=== PATIENT | male | born 1955 | race Caucasian/White ===

== ENCOUNTER → 2016-07-19 | Outpatient (REF) | payer OTHER | LOC: M SFHCCLAY 11:09 | PROVIDERS: ATTEND Family Medicine | DX: Z85.46 Personal history of malignant neoplasm of prostate (principal); Z08 Encounter for follow-up examination after completed treatment for malignant neoplasm ==

== ENCOUNTER → 2016-07-19 | Outpatient (CLI) | payer OTHER ==
--- NOTE | 2016-07-19 12:43 | REP ---
Clinical: Bilateral flank pain. Technique: Supine views of the abdomen and pelvis. Findings: Bowel gas pattern is nonspecific. No obvious urinary tract calcifications are appreciated. Evidence of prior prostatectomy. Skeletal structures demonstrate age-related degenerative changes. Impression: Limited evaluation without evidence for nephroureterolithiasis.
== END ==
LOC: M CLY 11:41
PROVIDERS: ATTEND Family Medicine
DX: M54.5 Low back pain (principal); R31.29 Other microscopic hematuria

== ENCOUNTER → 2016-08-25 | Outpatient (CLI) | payer OTHER ==
--- NOTE | 2016-08-25 09:57 | REP ---
BILATERAL RENAL ULTRASOUND: 08/25/2016. Clinical history: Left flank pain. Findings: No prior study. The right kidney is 12.1 x 6.1 x 5.3 cm. Left kidney 12.1 x 6.5 x 5 cm. Cortical echogenicity and thickness is normal on both sides. There is no hydronephrosis or hydroureter. Interpolar region of the left kidney shows a hypoechoic area 1.2 x 1 x 0.8 cm which may be calyceal diverticulum or cyst. No cyst or solid mass otherwise in either kidney. No stone or perinephric fluid. The bladder is only partially filled and cannot be evaluated. Impression: 1. There is no hydronephrosis, stone or perinephric fluid. 2. No definite solid mass. There is a small interpolar cyst versus calyceal diverticulum left kidney. 1.2 x 1 cm. 3. Bladder under filled and cannot be evaluated. Signed by Gene Smith MD 08/25/2016 05:49 P
== END ==
LOC: M RAD 09:07
PROVIDERS: ATTEND Family Medicine
DX: R10.9 Unspecified abdominal pain (principal)

== ENCOUNTER → 2017-05-31 | Outpatient (CLI) | payer OTHER | LOC: M RAD 15:40 | DX: R10.9 Unspecified abdominal pain (principal); K57.30 Diverticulosis of large intestine without perforation or abscess without bleeding | CPT/HCPCS: 74176 ==

== ENCOUNTER → 2017-08-17 | Outpatient (REF) | payer OTHER ==
[2017-08-18 12:17] LABS: HEMATOCRIT 51.6 % (42.0-52.0); HEMOGLOBIN 17.2 g/dl (14.0-18.0); MEAN CORPUSCULAR HEMOGLOBIN 27.5 pg (27.0-33.0); MEAN CORPUSCULAR HGB CONC 33.3 g/dl (32.0-36.5); MEAN CORPUSCULAR VOLUME 82.4 fl (80.0-96.0); PLATELET COUNT, AUTOMATED 308 10^3/uL (150-450); RED BLOOD COUNT 6.26 10^6/uL (4.30-6.10); RED CELL DISTRIBUTION WIDTH 12.7 % (11.5-14.5)
[2017-08-18 12:51] LABS: THYROID STIMULATING HORMONE 0.354 uIU/ML (0.358-3.740)
[2017-08-18 13:02] LABS: ALBUMIN 4.5 GM/DL (3.2-5.2); ALBUMIN/GLOBULIN RATIO 1.45 (1.00-1.93); ALKALINE PHOSPHATASE 68 U/L (45-117); ALT/SGPT 48 U/L (12-78); ANION GAP 4 MEQ/L (8-16); AST/SGOT 26 U/L (7-37); BILIRUBIN,TOTAL 0.5 MG/DL (0.2-1.0); BLOOD UREA NITROGEN 19 MG/DL (7-18); CALCIUM LEVEL 9.7 MG/DL (8.8-10.2); CARBON DIOXIDE LEVEL 33 MEQ/L (21-32); CHLORIDE LEVEL 104 MEQ/L (98-107); CREATININE FOR GFR 1.21 MG/DL (0.70-1.30); GLOMERULAR FILTRATION RATE > 60.0 (>49); GLUCOSE, FASTING 93 MG/DL (70-100); POTASSIUM SERUM 3.9 MEQ/L (3.5-5.1); SODIUM LEVEL 141 MEQ/L (136-145); TOTAL PROTEIN 7.6 GM/DL (6.4-8.2)
[2017-08-19 15:14] LABS: EBV VIRAL CAPSID AG IgM <36.0 U/mL (0.0-35.9)
[2017-08-20 00:06] LABS: Lyme Disease IgG/IgM Antibodie <0.91 ISR (0.00-0.90); Lyme Disease IgM Ab Quantitati <0.80 index (0.00-0.79)
== END ==
LOC: M SFHCCLAY 15:19
DX: R53.83 Other fatigue (principal); R53.81 Other malaise; R11.0 Nausea; R42 Dizziness and giddiness; R68.83 Chills (without fever)
CPT/HCPCS: 84443

== ENCOUNTER → 2020-07-02 | Outpatient (CLI) | payer OTHER ==
--- NOTE | 2020-07-02 10:30 | REP ---
INDICATION: HYPERTENTION/IMPINGEMENT SYNDROME OF RIGHT SHOULDER. COMPARISON: No comparison study. TECHNIQUE: Two views.. FINDINGS: The lungs are well inflated and free of infiltrate. The pleural angles are sharp. The heart size is normal. Pulmonary vasculature is not increased. No significant bony abnormality is seen. There are minimal discogenic spurs in the midthoracic spine. IMPRESSION: Negative chest x-ray. <Electronically signed by Abdon Veras > 07/02/20 1021
--- NOTE | 2020-07-02 10:33 | REP ---
INDICATION: HYPERTENTION/IMPINGEMENT SYNDROME OF RIGHT SHOULDER. COMPARISON: None. TECHNIQUE: Three views of the right shoulder are provided. FINDINGS: The right glenohumeral and acromioclavicular joints are normally aligned. There is mild inferior osteoarthritic spurring at the AC joint. Mild inferior glenohumeral spurring is seen at the inferior aspect of the glenoid. There is periarticular soft tissue calcification with a large calcific deposit superior and lateral to the humeral head consistent with calcific tendinitis or bursitis. No erosive changes seen. No fracture is seen. The visualized right rib cage is unremarkable. IMPRESSION: Large soft tissue calcific deposit in the periarticular soft tissues. Mild glenohumeral and acromioclavicular joint osteoarthritis. <Electronically signed by Abdon Veras > 07/02/20 [id number]
== END ==
LOC: M CLY 10:03
PROVIDERS: ATTEND Family Medicine
DX: I10 Essential (primary) hypertension (principal); M75.41 Impingement syndrome of right shoulder; M19.011 Primary osteoarthritis, right shoulder

== ENCOUNTER → 2021-02-02 | Outpatient (CLI) | payer OTHER ==
--- NOTE | 2021-02-02 10:33 | REP ---
INDICATION: S49.92XA, INJURY OF LEFT SHOULDER. COMPARISON: None. TECHNIQUE: Three views of the left shoulder were performed. FINDINGS: There is asymmetric acromioclavicular joint space narrowing with slight marginal osteophytosis. Calcifications are seen in the subacromial space. The glenohumeral relationship is within normal limits. IMPRESSION: AC joint DJD and soft tissue calcifications as described above possibly secondary to chronic calcific supraspinatus tendinitis. Consider MRI for further evaluation. <Electronically signed by Marcial Leon > 02/02/21 1950
== END ==
LOC: M CLY 10:11
PROVIDERS: ATTEND Physician Assistant
DX: S49.92XA Unspecified injury of left shoulder and upper arm, initial encounter (principal); X58.XXXA Exposure to other specified factors, initial encounter; Y92.9 Unspecified place or not applicable; Y93.9 Activity, unspecified; Y99.9 Unspecified external cause status; M19.012 Primary osteoarthritis, left shoulder

== ENCOUNTER → 2021-02-11 | Outpatient (CLI) | payer OTHER ==
--- NOTE | 2021-02-11 15:47 | REP ---
INDICATION: M25.562 ACUTE PAIN OF LEFT KNEE COMPARISON: None. TECHNIQUE: AP, lateral, bilateral oblique and sunrise views. FINDINGS: Mild age-related degenerative changes include subtle cortical irregularity to the femoral condyles and tibial spines as well as very subtle early spurring/osteophyte formation along the medial compartment. Lateral and sunrise views demonstrate small patellar spurs along with increased sclerosis along the posterior patellar margin and sclerosis/fraying along the anterior patellar margin. No acute fracture or dislocation. No effusion. IMPRESSION: Relatively mild multifocal degenerative changes. <Electronically signed by Roberto Carlos Díaz > 02/11/21 1477
== END ==
LOC: M CLY 15:19
PROVIDERS: ATTEND Physician Assistant
DX: M17.12 Unilateral primary osteoarthritis, left knee (principal)

== ENCOUNTER → 2022-12-23 | Outpatient (CLI) | payer MEDICARE | LOC: M RAD 11:17 | PROVIDERS: ATTEND Physician Assistant | DX: N45.1 Epididymitis (principal) ==

== ENCOUNTER → 2024-02-29 | Outpatient (REF) | payer MEDICARE ==
[2024-02-29 17:24] LABS: HEMATOCRIT 47.6 % (42.0-52.0); HEMOGLOBIN 15.6 g/dl (13.5-17.5); MEAN CORPUSCULAR HEMOGLOBIN 28.4 pg (27.0-33.0); MEAN CORPUSCULAR HGB CONC 32.8 g/dl (32.0-36.5); MEAN CORPUSCULAR VOLUME 86.7 fl (80.0-96.0); PLATELET COUNT, AUTOMATED 315 10^3/uL (150-450); RED BLOOD COUNT 5.49 10^6/uL (4.30-6.10); WHITE BLOOD COUNT 9.2 10^3/uL (4.0-10.0)
[2024-02-29 18:00] LABS: PROSTATIC SPECIFIC AG MONITOR 0.04 NG/ML (< 4.00)
[2024-02-29 18:09] LABS: ALBUMIN 4.2 G/DL (3.2-5.2); ALKALINE PHOSPHATASE 78 U/L (46-116); ALT/SGPT 27 U/L (7.0-40); AST/SGOT 15 U/L (<34); BILIRUBIN,TOTAL 0.4 MG/DL (0.3-1.2); BLOOD UREA NITROGEN 18 MG/DL (9-23); CALCIUM LEVEL 9.9 MG/DL (8.3-10.6); CARBON DIOXIDE LEVEL 33 MMOL/L (20-31); CHLORIDE LEVEL 102 MMOL/L (98-107); CHOLESTEROL LEVEL 191 MG/DL (<200); CHOLESTEROL RISK RATIO 5.19 (<5); CREATININE FOR GFR 1.14 MG/DL (0.70-1.30); GLOMERULAR FILTRATION RATE > 60.0 (>49); GLUCOSE, FASTING 91 MG/DL (74-106); HDL CHOLESTEROL 36.8 MG/DL (>40); LDL CHOLESTEROL 111.2 MG/DL (<100); NON-HDL-C 154.2 MG/DL; POTASSIUM SERUM 4.4 MMOL/L (3.5-5.1); SODIUM LEVEL 140 MMOL/L (136-145); TOTAL PROTEIN 7.1 G/DL (5.7-8.2); TRIGLYCERIDES LEVEL 215 MG/DL (<150)
== END ==
LOC: M SFHCCLAY 14:14
PROVIDERS: ATTEND Family Medicine
DX: I10 Essential (primary) hypertension (principal); Z85.46 Personal history of malignant neoplasm of prostate; K21.9 Gastro-esophageal reflux disease without esophagitis